=== PATIENT | male | born 1950 | race Two or more races ===

== ENCOUNTER 2018-11-24 17:48 | Inpatient (IN) | payer OTHER ==
[~2018-11-24] VITALS: Ht 162.6 cm; Wt 77.1 kg
[2018-11-24] MEDS ORDERED: CARV25TA2 PO (21:00)
[2018-11-24] MEDS ORDERED: DOCU-141 PO (21:00)
[2018-11-24] MEDS ORDERED: ERGO500040 PO (21:00)
[2018-11-24] MEDS ORDERED: SEVE800T28 PO (21:00)
[2018-11-24] MEDS ORDERED: FERR325T24 PO (21:00)
[2018-11-24] MEDS ORDERED: ATOR40TA PO (21:00)
[2018-11-24] MEDS ORDERED: ASCO500T9 PO (21:00)
[2018-11-24] MEDS ORDERED: MULT1TAB73 PO (21:00)
[2018-11-24] MEDS ORDERED: FOLI1TAB16 PO (21:00)
[2018-11-24] MEDS ORDERED: BENA20TA9 PO (21:00)
[2018-11-24] MEDS ORDERED: PANT40TA4 PO (21:00)
[2018-11-24] MEDS ORDERED: QUET25TA PO (21:00)
[2018-11-24 23:57] VITALS: BP 168/81
[2018-11-24 23:59] VITALS: BP 143/82
[2018-11-25] MEDS ORDERED: Z GUARD REMEDY 2 OZ OINT TP PRN (00:30)
[2018-11-25] MEDS ORDERED: HYDROCODONE/APAP 5/325MG 1 EACH TABLET PO PRN (00:30)
[2018-11-25] MEDS ORDERED: ONDANSETRON HCL/PF 4 MG/2 ML VIAL IVP PRN (00:30)
[2018-11-25] MEDS ORDERED: ZOLPIDEM TARTRATE 5 MG TABLET PO PRN (00:30)
[2018-11-25] MEDS ORDERED: ACETAMINOPHEN 325 MG TABLET PO PRN (00:30)
[2018-11-25] MEDS: SEVELAMER CARBONATE 800 MG TABLET PO SCH ×4 (01:21→18:25)
[2018-11-25] MEDS: QUETIAPINE FUMARATE 25 MG TABLET PO SCH ×2 (01:21→21:28)
[2018-11-25] MEDS ORDERED: PANTOPRAZOLE 40 MG VIAL ONE (01:35)
[2018-11-25] MEDS: PANTOPRAZOLE 40 MG VIAL IV SCH ×2 (01:38→09:00)
[2018-11-25 04:00] VITALS: BP 151/76
[2018-11-25 06:14] LABS: BASOPHILS % (AUTO) 0.4 % (0.0-2.0); EOSINOPHILS % (AUTO) 1.1 % (0.0-6.0); HEMATOCRIT 24 % (39-51); HEMOGLOBIN 8.1 g/dL (13.5-17.5); LYMPHOCYTES # (AUTO) 0.8 /CMM (0.8-4.8); LYMPHOCYTES % (AUTO) 8.6 % (20.0-44.0); MEAN CORPUSCULAR HGB CONC 34 g/dl (31.0-36.0); MEAN CORPUSCULAR VOLUME 90 fL (80-96); MONOCYTES # (AUTO) 1.1 /CMM (0.1-1.30); MONOCYTES % (AUTO) 11.6 % (2.0-12.0); NEUTROPHILS # (AUTO) 7.8 /CMM (1.8-8.9); NEUTROPHILS % (AUTO) 78.3 % (43.0-81.0); PLATELET COUNT (AUTO) 255 /CMM (150-450); RED BLOOD CELL COUNT(AUTO) 2.63 MIL/uL (4.5-6.0); WHITE BLOOD COUNT (AUTO) 9.9 K/uL (4.3-11.0)
[2018-11-25 06:31] LABS: CALCIUM, SERUM 8.5 mg/dL (8.5-10.1); PHOSPHORUS 7.4 mg/dL (2.5-4.9); POTASSIUM 5.4 mmol/L (3.5-5.1)
[2018-11-25 06:47] LABS: CREATININE 11.5 mg/dL (0.6-1.3)
[2018-11-25 08:00] VITALS: BP 161/84
[2018-11-25] MEDS ORDERED: ERGOCALCIFEROL (VITAMIN D 2) 50,000 UNIT CAPSULE PO SCH (09:00)
[2018-11-25] MEDS: FERROUS SULFATE (325 MG) 325 MG/TAB TABLET PO SCH ×3 (09:18→18:25)
[2018-11-25] MEDS: ASCORBIC ACID 500 MG TABLET PO SCH (09:18)
[2018-11-25] MEDS: DOCUSATE SODIUM 100 MG CAPSULE PO SCH ×2 (09:18→18:25)
[2018-11-25] MEDS: MULTIVITAMINS,THERAGRAN 1 UDTAB TABLET PO SCH (09:18)
[2018-11-25] MEDS: FOLIC ACID 1 MG TABLET PO SCH (09:19)
[2018-11-25] MEDS: BENAZEPRIL HCL 20 MG TABLET PO SCH (15:08)
[2018-11-25] MEDS: CARVEDILOL 12.5 MG TABLET PO SCH ×2 (15:09→23:40)
[2018-11-25 15:45] VITALS: BP 167/97
[2018-11-25 17:40] LABS: FERRITIN 4335 ng/mL (8-388)
[2018-11-25] MEDS: SUCRALFATE 1 G/10 ML UDC GT SCH ×2 (18:25→21:28)
[2018-11-25 18:57] LABS: IRON, SERUM 39 ug/dl (50-175); TOTAL IRON BINDING CAPACITY 82 ug/dl (250-450)
[2018-11-25 20:00] VITALS: BP_SYST 143; BP_SYST 163; BP_DIAS 81
[2018-11-25] MEDS ORDERED: NEXIUM 40 MG VIAL IV SCH (20:00)
[2018-11-25] MEDS: NEXIUM 40 MG VIAL IV SCH (20:39)
[2018-11-25] MEDS: ATORVASTATIN 40 MG TABLET PO SCH (21:28)
[2018-11-26 06:58] LABS: BASOPHILS % (AUTO) 0.4 % (0.0-2.0); EOSINOPHILS % (AUTO) 0.9 % (0.0-6.0); HEMATOCRIT 22 % (39-51); HEMOGLOBIN 7.4 g/dL (13.5-17.5); LYMPHOCYTES # (AUTO) 0.4 /CMM (0.8-4.8); MEAN CORPUSCULAR HGB CONC 34 g/dl (31.0-36.0); MEAN CORPUSCULAR VOLUME 89 fL (80-96); MONOCYTES # (AUTO) 0.8 /CMM (0.1-1.30); MONOCYTES % (AUTO) 12.4 % (2.0-12.0); NEUTROPHILS # (AUTO) 5.5 /CMM (1.8-8.9); NEUTROPHILS % (AUTO) 80.3 % (43.0-81.0); PLATELET COUNT (AUTO) 222 /CMM (150-450); RED BLOOD CELL COUNT(AUTO) 2.43 MIL/uL (4.5-6.0); WHITE BLOOD COUNT (AUTO) 6.8 K/uL (4.3-11.0)
[2018-11-26 07:16] LABS: CALCIUM, SERUM 8.2 mg/dL (8.5-10.1); MAGNESIUM 1.9 mg/dL (1.8-2.4); PHOSPHORUS 4.7 mg/dL (2.5-4.9); POTASSIUM 4.5 mmol/L (3.5-5.1)
[2018-11-26 07:18] LABS: CREATININE 7.8 mg/dL (0.6-1.3)
[2018-11-26 08:00] VITALS: BP 160/84
[2018-11-26] MEDS ORDERED: ERGOCALCIFEROL (VITAMIN D 2) 50,000 UNIT CAPSULE PO SCH (09:00)
[2018-11-26] MEDS: ASCORBIC ACID 500 MG TABLET PO SCH (09:36)
[2018-11-26] MEDS: FOLIC ACID 1 MG TABLET PO SCH (09:36)
[2018-11-26] MEDS: SUCRALFATE 1 G/10 ML UDC GT SCH ×4 (09:36→21:05)
[2018-11-26] MEDS: SEVELAMER CARBONATE 800 MG TABLET PO SCH ×3 (09:36→18:52)
[2018-11-26] MEDS: DOCUSATE SODIUM 100 MG CAPSULE PO SCH ×2 (09:36→18:52)
[2018-11-26] MEDS: FERROUS SULFATE (325 MG) 325 MG/TAB TABLET PO SCH ×3 (09:37→18:52)
[2018-11-26] MEDS: MULTIVITAMINS,THERAGRAN 1 UDTAB TABLET PO SCH (09:37)
[2018-11-26] MEDS: CARVEDILOL 12.5 MG TABLET PO SCH ×2 (09:37→20:15)
[2018-11-26] MEDS: BENAZEPRIL HCL 20 MG TABLET PO SCH (09:38)
[2018-11-26] MEDS: NEXIUM 40 MG VIAL IV SCH ×2 (09:47→20:14)
[2018-11-26] MEDS ORDERED: QUETIAPINE FUMARATE 25 MG TABLET PO SCH (13:30)
[2018-11-26 16:00] VITALS: BP 164/88
[2018-11-26] MEDS ORDERED: QUETIAPINE FUMARATE 25 MG TABLET PO PRN (19:30)
[2018-11-26 20:00] VITALS: BP 172/89
[2018-11-26 20:03] VITALS: BP 172/89
[2018-11-26] MEDS: QUETIAPINE FUMARATE 25 MG TABLET PO SCH (20:15)
[2018-11-26] MEDS: ATORVASTATIN 40 MG TABLET PO SCH (21:05)
[2018-11-27] VITALS (7 sets, daily range): BP systolic 91–169; BP diastolic 59–96
[2018-11-27 07:01] LABS: BASOPHILS % (AUTO) 0.8 % (0.0-2.0); EOSINOPHILS % (AUTO) 3.2 % (0.0-6.0); LYMPHOCYTES # (AUTO) 0.6 /CMM (0.8-4.8); MEAN CORPUSCULAR HGB CONC 34 g/dl (31.0-36.0); MEAN CORPUSCULAR VOLUME 90 fL (80-96); MONOCYTES # (AUTO) 0.6 /CMM (0.1-1.30); MONOCYTES % (AUTO) 14.6 % (2.0-12.0); NEUTROPHILS % (AUTO) 67.4 % (43.0-81.0); PLATELET COUNT (AUTO) 207 /CMM (150-450); RED BLOOD CELL COUNT(AUTO) 2.22 MIL/uL (4.5-6.0); WHITE BLOOD COUNT (AUTO) 4.4 K/uL (4.3-11.0)
[2018-11-27 07:12] LABS: CALCIUM, SERUM 8.2 mg/dL (8.5-10.1); PHOSPHORUS 5.6 mg/dL (2.5-4.9); POTASSIUM 5.2 mmol/L (3.5-5.1)
[2018-11-27 07:44] LABS: HEMOGLOBIN 6.8 g/dL (13.5-17.5)
[2018-11-27 07:45] LABS: HEMATOCRIT 20 % (39-51)
[2018-11-27 08:12] LABS: EOSINOPHILS % (MANUAL) 2 % (0-4); LYMPHOCYTES % (MANUAL) 17 % (16-48); MONOCYTES % (MANUAL) 16 % (0-11.0); NEUTROPHILS % (MANUAL) 65 (42-76)
[2018-11-27] MEDS: FERROUS SULFATE (325 MG) 325 MG/TAB TABLET PO SCH ×3 (09:30→17:49)
[2018-11-27] MEDS: NEXIUM 40 MG VIAL IV SCH ×2 (09:30→20:35)
[2018-11-27] MEDS: ASCORBIC ACID 500 MG TABLET PO SCH (09:30)
[2018-11-27] MEDS: SEVELAMER CARBONATE 800 MG TABLET PO SCH ×3 (09:30→17:50)
[2018-11-27] MEDS: MULTIVITAMINS,THERAGRAN 1 UDTAB TABLET PO SCH (09:30)
[2018-11-27] MEDS: FOLIC ACID 1 MG TABLET PO SCH (09:30)
[2018-11-27] MEDS: DOCUSATE SODIUM 100 MG CAPSULE PO SCH ×2 (09:31→17:49)
[2018-11-27] MEDS: BENAZEPRIL HCL 20 MG TABLET PO SCH (09:32)
[2018-11-27] MEDS: CARVEDILOL 12.5 MG TABLET PO SCH ×2 (09:33→20:35)
[2018-11-27] MEDS: QUETIAPINE FUMARATE 25 MG TABLET PO SCH ×4 (09:34→20:34)
[2018-11-27] MEDS: SUCRALFATE 1 G/10 ML UDC GT SCH ×4 (09:34→21:02)
[2018-11-27] MEDS: AZITHROMYCIN 500 MG in IV D5W 250 ML IV SCH (13:52)
[2018-11-27] MEDS: AZTREONAM 1 G in IV NS 0.9% 100 ML IV SCH (13:52)
[2018-11-27] MEDS ORDERED: PEG 3350/NA SULF,BICARB,CL/KCL 4,000 ML BOTTLE PO STA (16:20)
[2018-11-27] MEDS ORDERED: MAGNESIUM CITRATE 296 ML BOTTLE PO STA (16:20)
[2018-11-27] MEDS ORDERED: NA PHOS,M-B/NA PHOS,DI-BA 1 EA ENEMA RC PRN (16:30)
[2018-11-27 18:20] LABS: ALBUMIN 1.9 g/dL (3.4-5.0); BILIRUBIN,DIRECT 0.1 mg/dL (0.0-0.2); BILIRUBIN,TOTAL 0.4 mg/dL (0.2-1.0); TOTAL PROTEIN, SERUM 6.3 g/dL (6.4-8.2)
[2018-11-27 20:06] LABS: BASOPHILS % (AUTO) 0.9 % (0.0-2.0); EOSINOPHILS % (AUTO) 2.2 % (0.0-6.0); HEMATOCRIT 23 % (39-51); HEMOGLOBIN 7.8 g/dL (13.5-17.5); LYMPHOCYTES # (AUTO) 0.4 /CMM (0.8-4.8); LYMPHOCYTES % (AUTO) 9.6 % (20.0-44.0); MEAN CORPUSCULAR HGB CONC 34 g/dl (31.0-36.0); MEAN CORPUSCULAR VOLUME 91 fL (80-96); MONOCYTES # (AUTO) 0.5 /CMM (0.1-1.30); MONOCYTES % (AUTO) 12.2 % (2.0-12.0); NEUTROPHILS # (AUTO) 3.1 /CMM (1.8-8.9); NEUTROPHILS % (AUTO) 75.1 % (43.0-81.0); PLATELET COUNT (AUTO) 186 /CMM (150-450); RED BLOOD CELL COUNT(AUTO) 2.57 MIL/uL (4.5-6.0); WHITE BLOOD COUNT (AUTO) 4.1 K/uL (4.3-11.0)
[2018-11-27] MEDS: ATORVASTATIN 40 MG TABLET PO SCH (21:02)
[2018-11-28] MEDS: SUCRALFATE 1 G/10 ML UDC GT SCH ×4 (07:30→21:26)
[2018-11-28 08:00] VITALS: BP 99/74
[2018-11-28] MEDS: QUETIAPINE FUMARATE 25 MG TABLET PO SCH ×4 (08:00→21:25)
[2018-11-28] MEDS: NEXIUM 40 MG VIAL IV SCH ×2 (08:05→21:25)
[2018-11-28] MEDS: MULTIVITAMINS,THERAGRAN 1 UDTAB TABLET PO SCH (09:00)
[2018-11-28] MEDS: FERROUS SULFATE (325 MG) 325 MG/TAB TABLET PO SCH ×3 (09:00→16:25)
[2018-11-28] MEDS: SEVELAMER CARBONATE 800 MG TABLET PO SCH ×3 (09:00→16:26)
[2018-11-28] MEDS: BENAZEPRIL HCL 20 MG TABLET PO SCH (09:00)
[2018-11-28] MEDS: CARVEDILOL 12.5 MG TABLET PO SCH ×2 (09:00→21:26)
[2018-11-28] MEDS: ASCORBIC ACID 500 MG TABLET PO SCH (09:00)
[2018-11-28] MEDS: FOLIC ACID 1 MG TABLET PO SCH (09:00)
[2018-11-28] MEDS: DOCUSATE SODIUM 100 MG CAPSULE PO SCH ×2 (09:00→16:25)
[2018-11-28 12:06] LABS: BASOPHILS % (AUTO) 0.7 % (0.0-2.0); HEMATOCRIT 22 % (39-51); HEMOGLOBIN 7.4 g/dL (13.5-17.5); LYMPHOCYTES # (AUTO) 0.6 /CMM (0.8-4.8); LYMPHOCYTES % (AUTO) 14.2 % (20.0-44.0); MEAN CORPUSCULAR HGB CONC 34 g/dl (31.0-36.0); MEAN CORPUSCULAR VOLUME 90 fL (80-96); MONOCYTES # (AUTO) 0.5 /CMM (0.1-1.30); MONOCYTES % (AUTO) 12.2 % (2.0-12.0); NEUTROPHILS # (AUTO) 2.8 /CMM (1.8-8.9); NEUTROPHILS % (AUTO) 69.9 % (43.0-81.0); PLATELET COUNT (AUTO) 183 /CMM (150-450); RED BLOOD CELL COUNT(AUTO) 2.44 MIL/uL (4.5-6.0)
[2018-11-28] MEDS: AZTREONAM 1 G in IV NS 0.9% 100 ML IV SCH (12:12)
[2018-11-28 12:18] LABS: CALCIUM, SERUM 8.1 mg/dL (8.5-10.1); CREATININE 7.2 mg/dL (0.6-1.3); POTASSIUM 4.9 mmol/L (3.5-5.1)
[2018-11-28 12:19] LABS: MAGNESIUM 1.9 mg/dL (1.8-2.4); PHOSPHORUS 4.6 mg/dL (2.5-4.9)
[2018-11-28] MEDS: AZITHROMYCIN 500 MG in IV D5W 250 ML IV SCH (14:05)
[2018-11-28 16:00] VITALS: BP 130/70
[2018-11-28] MEDS: PEG 3350/NA SULF,BICARB,CL/KCL 4,000 ML BOTTLE PO ONE ×2 (16:00→16:57)
[2018-11-28 20:00] VITALS: BP 177/77
[2018-11-28] MEDS: ATORVASTATIN 40 MG TABLET PO SCH (21:26)
[2018-11-29 07:34] LABS: BASOPHILS % (AUTO) 0.8 % (0.0-2.0); EOSINOPHILS % (AUTO) 2.7 % (0.0-6.0); HEMATOCRIT 25 % (39-51); HEMOGLOBIN 8.5 g/dL (13.5-17.5); LYMPHOCYTES # (AUTO) 0.7 /CMM (0.8-4.8); MEAN CORPUSCULAR HGB CONC 34 g/dl (31.0-36.0); MEAN CORPUSCULAR VOLUME 89 fL (80-96); MONOCYTES # (AUTO) 0.5 /CMM (0.1-1.30); MONOCYTES % (AUTO) 12.5 % (2.0-12.0); NEUTROPHILS # (AUTO) 2.9 /CMM (1.8-8.9); PLATELET COUNT (AUTO) 196 /CMM (150-450); RED BLOOD CELL COUNT(AUTO) 2.82 MIL/uL (4.5-6.0); WHITE BLOOD COUNT (AUTO) 4.3 K/uL (4.3-11.0)
[2018-11-29 07:55] LABS: CALCIUM, SERUM 8.5 mg/dL (8.5-10.1); CREATININE 5.3 mg/dL (0.6-1.3); MAGNESIUM 2.1 mg/dL (1.8-2.4); PHOSPHORUS 3.7 mg/dL (2.5-4.9); POTASSIUM 3.9 mmol/L (3.5-5.1)
[2018-11-29 08:00] VITALS: BP 208/89
[2018-11-29] MEDS: NEXIUM 40 MG VIAL IV SCH (08:52)
[2018-11-29] MEDS: BENAZEPRIL HCL 20 MG TABLET PO SCH (08:53)
[2018-11-29] MEDS: FOLIC ACID 1 MG TABLET PO SCH (08:53)
[2018-11-29] MEDS: SEVELAMER CARBONATE 800 MG TABLET PO SCH ×3 (08:53→17:12)
[2018-11-29] MEDS: FERROUS SULFATE (325 MG) 325 MG/TAB TABLET PO SCH ×3 (08:54→17:12)
[2018-11-29] MEDS: SUCRALFATE 1 G/10 ML UDC GT SCH ×3 (08:54→17:12)
[2018-11-29] MEDS: CARVEDILOL 12.5 MG TABLET PO SCH ×2 (08:54→20:36)
[2018-11-29] MEDS: DOCUSATE SODIUM 100 MG CAPSULE PO SCH ×2 (08:54→17:12)
[2018-11-29] MEDS: MULTIVITAMINS,THERAGRAN 1 UDTAB TABLET PO SCH (08:54)
[2018-11-29] MEDS: QUETIAPINE FUMARATE 25 MG TABLET PO SCH ×4 (08:54→20:35)
[2018-11-29] MEDS: ASCORBIC ACID 500 MG TABLET PO SCH (08:54)
[2018-11-29] MEDS: AZTREONAM 1 G in IV NS 0.9% 100 ML IV SCH (13:20)
[2018-11-29] MEDS: AZITHROMYCIN 500 MG in IV D5W 250 ML IV SCH (15:11)
[2018-11-29 16:02] VITALS: BP 189/77
[2018-11-29] MEDS: PANTOPRAZOLE 40 MG/PACK PACK PO SCH (17:12)
[2018-11-29 20:00] VITALS: BP 164/92
[2018-11-29] MEDS: ATORVASTATIN 40 MG TABLET PO SCH (21:25)
[2018-11-29] MEDS: SUCRALFATE 1 G/10 ML UDC PO SCH (21:25)
[2018-11-29 22:00] VITALS: BP 160/82
[2018-11-30] VITALS: BP 157/84
[2018-11-30] MEDS: PANTOPRAZOLE 40 MG/PACK PACK PO SCH ×2 (07:58→16:36)
[2018-11-30] MEDS: QUETIAPINE FUMARATE 25 MG TABLET PO SCH ×4 (07:58→20:38)
[2018-11-30] MEDS: SUCRALFATE 1 G/10 ML UDC PO SCH ×4 (07:58→21:12)
[2018-11-30 08:00] VITALS: BP 158/81
[2018-11-30] MEDS: BENAZEPRIL HCL 20 MG TABLET PO SCH (08:07)
[2018-11-30] MEDS: DOCUSATE SODIUM 100 MG CAPSULE PO SCH ×2 (08:07→16:36)
[2018-11-30] MEDS: FERROUS SULFATE (325 MG) 325 MG/TAB TABLET PO SCH ×3 (08:07→16:36)
[2018-11-30] MEDS: CARVEDILOL 12.5 MG TABLET PO SCH ×2 (08:08→20:39)
[2018-11-30] MEDS: ASCORBIC ACID 500 MG TABLET PO SCH (08:08)
[2018-11-30] MEDS: SEVELAMER CARBONATE 800 MG TABLET PO SCH ×3 (08:08→16:36)
[2018-11-30] MEDS: MULTIVITAMINS,THERAGRAN 1 UDTAB TABLET PO SCH (08:08)
[2018-11-30] MEDS: FOLIC ACID 1 MG TABLET PO SCH (08:08)
[2018-11-30 10:58] LABS: BASOPHILS # (AUTO) 0.1 /CMM (0.0-0.2); BASOPHILS % (AUTO) 2.5 % (0.0-2.0); HEMATOCRIT 25 % (39-51); HEMOGLOBIN 8.5 g/dL (13.5-17.5); LYMPHOCYTES # (AUTO) 0.7 /CMM (0.8-4.8); LYMPHOCYTES % (AUTO) 15.4 % (20.0-44.0); MEAN CORPUSCULAR HGB CONC 34 g/dl (31.0-36.0); MEAN CORPUSCULAR VOLUME 90 fL (80-96); MONOCYTES # (AUTO) 0.4 /CMM (0.1-1.30); MONOCYTES % (AUTO) 9.1 % (2.0-12.0); NEUTROPHILS # (AUTO) 3.1 /CMM (1.8-8.9); PLATELET COUNT (AUTO) 203 /CMM (150-450); RED BLOOD CELL COUNT(AUTO) 2.79 MIL/uL (4.5-6.0); WHITE BLOOD COUNT (AUTO) 4.4 K/uL (4.3-11.0)
[2018-11-30 11:08] LABS: CALCIUM, SERUM 8.4 mg/dL (8.5-10.1); CREATININE 3.6 mg/dL (0.6-1.3); MAGNESIUM 1.9 mg/dL (1.8-2.4); PHOSPHORUS 2.4 mg/dL (2.5-4.9); POTASSIUM 4.1 mmol/L (3.5-5.1)
[2018-11-30] MEDS: AZTREONAM 1 G in IV NS 0.9% 100 ML IV SCH ×3 (12:49→15:47)
[2018-11-30] MEDS: FLUCONAZOLE (100 MG) 100 MG TABLET PO SCH (12:51)
[2018-11-30] MEDS: AZITHROMYCIN 250 MG TABLET PO SCH (13:00)
[2018-11-30] MEDS: hydrALAZINE HCL IV 20 MG VIAL IV PRN ×2 (15:22→15:38)
[2018-11-30 16:00] VITALS: BP 174/82
[2018-11-30] MEDS ORDERED: K PHOS NEUTRAL 250 MG TABLET PO ONE (17:00)
[2018-11-30 20:00] VITALS: BP 157/90
[2018-11-30] MEDS: ATORVASTATIN 40 MG TABLET PO SCH (21:12)
[2018-12-01 06:29] LABS: BASOPHILS % (AUTO) 0.7 % (0.0-2.0); EOSINOPHILS % (AUTO) 1.8 % (0.0-6.0); HEMATOCRIT 24 % (39-51); HEMOGLOBIN 8.2 g/dL (13.5-17.5); LYMPHOCYTES # (AUTO) 0.8 /CMM (0.8-4.8); LYMPHOCYTES % (AUTO) 14.8 % (20.0-44.0); MEAN CORPUSCULAR HGB CONC 34 g/dl (31.0-36.0); MEAN CORPUSCULAR VOLUME 90 fL (80-96); MONOCYTES # (AUTO) 0.5 /CMM (0.1-1.30); MONOCYTES % (AUTO) 10.1 % (2.0-12.0); NEUTROPHILS # (AUTO) 3.8 /CMM (1.8-8.9); NEUTROPHILS % (AUTO) 72.6 % (43.0-81.0); PLATELET COUNT (AUTO) 174 /CMM (150-450); RED BLOOD CELL COUNT(AUTO) 2.72 MIL/uL (4.5-6.0); WHITE BLOOD COUNT (AUTO) 5.2 K/uL (4.3-11.0)
[2018-12-01 06:33] LABS: CALCIUM, SERUM 8.3 mg/dL (8.5-10.1); PHOSPHORUS 4.2 mg/dL (2.5-4.9); POTASSIUM 4.4 mmol/L (3.5-5.1)
[2018-12-01 08:00] VITALS: BP 197/87
[2018-12-01] MEDS ORDERED: FLUCONAZOLE (100 MG) 100 MG TABLET PO SCH (09:00)
[2018-12-01] MEDS: SUCRALFATE 1 G/10 ML UDC PO SCH ×2 (09:04→12:34)
[2018-12-01] MEDS: BENAZEPRIL HCL 20 MG TABLET PO SCH (09:05)
[2018-12-01] MEDS: PANTOPRAZOLE 40 MG/PACK PACK PO SCH ×2 (09:05→15:55)
[2018-12-01] MEDS: CARVEDILOL 12.5 MG TABLET PO SCH (09:06)
[2018-12-01] MEDS: ASCORBIC ACID 500 MG TABLET PO SCH (09:06)
[2018-12-01] MEDS: FERROUS SULFATE (325 MG) 325 MG/TAB TABLET PO SCH ×3 (09:06→16:16)
[2018-12-01] MEDS: MULTIVITAMINS,THERAGRAN 1 UDTAB TABLET PO SCH (09:06)
[2018-12-01] MEDS: DOCUSATE SODIUM 100 MG CAPSULE PO SCH ×2 (09:07→16:16)
[2018-12-01] MEDS: FOLIC ACID 1 MG TABLET PO SCH (09:08)
[2018-12-01] MEDS: SEVELAMER CARBONATE 800 MG TABLET PO SCH ×3 (09:08→16:16)
[2018-12-01] MEDS: QUETIAPINE FUMARATE 25 MG TABLET PO SCH ×3 (09:09→16:16)
[2018-12-01] MEDS ORDERED: SUCR1ORA6 PO (12:06)
[2018-12-01] MEDS ORDERED: QUET25TA PO ×3 (12:06)
[2018-12-01] MEDS ORDERED: FLUC100T8 PO (12:06)
[2018-12-01] MEDS ORDERED: PANT40SU2 PO (12:06)
[2018-12-01] MEDS: FLUCONAZOLE (100 MG) 100 MG TABLET PO SCH (12:30)
[2018-12-01] MEDS: AZTREONAM 1 G in IV NS 0.9% 100 ML IV SCH (12:30)
[2018-12-01] MEDS: AZITHROMYCIN 250 MG TABLET PO SCH (12:36)
[2018-12-01 16:00] VITALS: BP 193/84
[2018-12-01] MEDS ORDERED: hydrALAZINE HCL 10 MG TABLET PO PRN (16:00)
[2018-12-01 16:14] VITALS: BP 193/87
== END 2018-12-01 17:22 | DRG 241 ==
LOC: TELE 19:39 → MED 11-25 15:24
PROVIDERS: ADMIT Nurse Practitioner Acute Care; ATTEND Registered Nurse
PROC: 5A1D70Z Performance of Urinary Filtration, Intermittent, Less than 6 Hours Per Day (ICD-10-PCS; principal; 2018-11-25)
PROC: 30233N1 Transfusion of Nonautologous Red Blood Cells into Peripheral Vein, Percutaneous Approach (ICD-10-PCS; 2018-11-27)
PROC: 0DB78ZX Excision of Stomach, Pylorus, Via Natural or Artificial Opening Endoscopic, Diagnostic (ICD-10-PCS; 2018-11-28)
DX: K29.81 Duodenitis with bleeding (principal); G93.41 Metabolic encephalopathy; J15.9 Unspecified bacterial pneumonia; D68.59 Other primary thrombophilia; B37.81 Candidal esophagitis; R53.2 Functional quadriplegia; E11.22 Type 2 diabetes mellitus with diabetic chronic kidney disease; D62 Acute posthemorrhagic anemia; I12.0 Hypertensive chronic kidney disease with stage 5 chronic kidney disease or end stage renal disease; F05 Delirium due to known physiological condition; E87.5 Hyperkalemia; N18.6 End stage renal disease; D63.8 Anemia in other chronic diseases classified elsewhere; Z99.2 Dependence on renal dialysis; E78.5 Hyperlipidemia, unspecified; I16.0 Hypertensive urgency; F41.9 Anxiety disorder, unspecified; F03.90 Unspecified dementia, unspecified severity, without behavioral disturbance, psychotic disturbance, mood disturbance, and anxiety; F01.50 Vascular dementia, unspecified severity, without behavioral disturbance, psychotic disturbance, mood disturbance, and anxiety; F29 Unspecified psychosis not due to a substance or known physiological condition; K44.9 Diaphragmatic hernia without obstruction or gangrene; E11.51 Type 2 diabetes mellitus with diabetic peripheral angiopathy without gangrene
CPT/HCPCS: 36415; 71045-TC; 80048-TC; 80061-TC; 80076-TC; 82140-TC; 82247-TC; 82248-TC; 82728-TC; 83540-TC; 83735-TC; 84100-TC; 85025-TC; 86704; 86706; 86850-TC; 86921-TC; 87081-TC; 87340; 88305-TC; 88313-TC; 88342; 90935-TC; 97530-TC; A6403; C9113; G0378; J0360; J0456; J2704; J3490; J7030; J7040; J7050; J7060; P9016-BL

== ENCOUNTER 2019-01-07 21:08 | Inpatient (IN) | payer OTHER ==
[~2019-01-07] VITALS: Ht 172.7 cm; Wt 73.5 kg
[~2019-01-07 21:08] MED LIST: ASCO500T9 PO; ATOR40TA PO; BENA20TA9 PO; CARV25TA2 PO; DOCU-141 PO; ERGO500040 PO; FERR325T24 PO; FLUC100T8 PO; FOLI1TAB16 PO; MULT1TAB73 PO; PANT40SU2 PO; QUET25TA PO; SEVE800T28 PO; SUCR1ORA6 PO
--- NOTE | 2019-01-07 23:06 | NUR ---
BUILDING SERVICES COORDINATOR ADMITTING NOTE PATIENT DIRECT ADMIT FROM [facility]. RECEIVED PATIENT VIA GURNEY. PATIENT ARABIC SPEAKING, AWAKE, CONFUSED AND SLOW TO RESPONSE. ON ROOM AIR, NO SOB AND RESPIRATORY DISTRESS NOTED. SKIN ASSESSMENT DONE, VITAL SIGNS DONE AND RECORDED. ON TELE MONITOR SINUS RHYTHM WITH HR 75. IV SITE RIGHT AC 18G, FLUSHING AND PATENT, SITE C/D/I, SALINE LOCKED. LEFT ARM AVF NOTED, POSITIVE FOR BRUIT AND THRILL, SITE C/D/I. SAFETY MEASURES IN PLACE; BED LOCKED AND IN LOWEST POSITION, SIDE RAILS UP X2, CALL LIGHT WITHIN REACH. MD AWARE OF PATIENT'S ARRIVAL ON UNIT. AWAITING FOR ADMITTING ORDERS. WILL CONTINUE MONITOR PT CLOSELY.
--- NOTE | 2019-01-07 23:15 | NUR ---
REFINERY TECHNICIAN NOTES MADE AWARE OF PATIENT BP 174/89, ORDERED HYDRALAZINE 10MG IV Q6H PRN FOR HYPERTENSION. WILL ATTEND TO ORDERS.
[2019-01-07 23:41] VITALS: BP 174/89
[2019-01-07] MEDS: hydrALAZINE HCL IV 20 MG VIAL IV PRN (23:41)
[2019-01-08] VITALS (8 sets, daily range): BP systolic 113–211; BP diastolic 76–106
[2019-01-08] MEDS ORDERED: ONDANSETRON HCL/PF 4 MG/2 ML VIAL IVP PRN
[2019-01-08] MEDS ORDERED: MAG HYDROX/AL HYDROX/SIMETH 30 ML UDC PO PRN
[2019-01-08] MEDS ORDERED: ZOLPIDEM TARTRATE 5 MG TABLET PO PRN
[2019-01-08] MEDS ORDERED: ACETAMINOPHEN 325 MG TABLET PO PRN
[2019-01-08] MEDS ORDERED: Z GUARD REMEDY 2 OZ OINT TP PRN
[2019-01-08] MEDS ORDERED: HYDROCODONE/APAP 5/325MG 1 EACH TABLET PO PRN
[2019-01-08] MEDS ORDERED: MAGNESIUM HYDROXIDE 30 ML UDC PO PRN
[2019-01-08 06:38] LABS: BASOPHILS # (AUTO) 0.1 /CMM (0.0-0.2); BASOPHILS % (AUTO) 1.2 % (0.0-2.0); EOSINOPHILS % (AUTO) 1.3 % (0.0-6.0); HEMATOCRIT 28 % (39-51); HEMOGLOBIN 9.5 g/dL (13.5-17.5); LYMPHOCYTES % (AUTO) 19.5 % (20.0-44.0); MEAN CORPUSCULAR HGB CONC 34 g/dl (31.0-36.0); MEAN CORPUSCULAR VOLUME 92 fL (80-96); MONOCYTES # (AUTO) 0.5 /CMM (0.1-1.30); MONOCYTES % (AUTO) 9.2 % (2.0-12.0); NEUTROPHILS # (AUTO) 3.6 /CMM (1.8-8.9); NEUTROPHILS % (AUTO) 68.8 % (43.0-81.0); PLATELET COUNT (AUTO) 138 /CMM (150-450); RED BLOOD CELL COUNT(AUTO) 3.09 MIL/uL (4.5-6.0); WHITE BLOOD COUNT (AUTO) 5.2 K/uL (4.3-11.0)
--- NOTE | 2019-01-08 06:55 | NUR ---
SIDE STITCHING MACHINE OPERATOR CLOSING NOTES PATIENT RESTING IN BED, [place]OH[place] SPEAKING, AWAKE, CONFUSED AND SLOW TO RESPOND. ON ROOM AIR, NO SOB AND RESPIRATORY DISTRESS NOTED. ON TELE MONITOR SINUS RHYTHM WITH HR 70S. IV SITE RIGHT AC 18G, FLUSHING AND PATENT, SITE C/D/I, SALINE LOCKED. LEFT ARM AVF NOTED, POSITIVE FOR BRUIT AND THRILL, SITE C/D/I. SAFETY MEASURES MAINTAINED; BED LOCKED AND IN LOWEST POSITION, SIDE RAILS UP X2, CALL LIGHT WITHIN REACH. REPOSITIONED Q2H. ALL ADMITTING ORDERS ATTENDED. ALL MD ORDERS CARRIED OUT. WILL ENDORSE TO AM RN FOR TAINA.
[2019-01-08 07:09] LABS: CALCIUM, SERUM 10.1 mg/dL (8.5-10.1); MAGNESIUM 2.3 mg/dL (1.8-2.4); PHOSPHORUS 5.3 mg/dL (2.5-4.9); POTASSIUM 5.1 mmol/L (3.5-5.1)
[2019-01-08 07:18] LABS: CREATININE 14.2 mg/dL (0.6-1.3)
[2019-01-08] MEDS ORDERED: [UNRECOGNIZED DRUG - OTHER] (08:12)
[2019-01-08] MEDS ORDERED: FOLI0.8T2 PO (08:12)
[2019-01-08] MEDS ORDERED: CLON0.1T PO (08:12)
[2019-01-08] MEDS: hydrALAZINE HCL IV 20 MG VIAL IV PRN ×2 (08:14→18:35)
[2019-01-08] MEDS: PANTOPRAZOLE 40 MG TABLET.DR PO SCH (08:14)
[2019-01-08] MEDS ORDERED: REG INSULIN IJ (08:15)
[2019-01-08] MEDS ORDERED: DEXTROSE 50%-WATER 50 ML DISP.SYRIN IV PRN (08:30)
[2019-01-08] MEDS ORDERED: QUETIAPINE FUMARATE 25 MG TABLET PO PRN (08:30)
[2019-01-08] MEDS ORDERED: BENAZEPRIL HCL 20 MG TABLET PO SCH (09:00)
[2019-01-08] MEDS: FERROUS SULFATE (325 MG) 325 MG/TAB TABLET PO SCH ×4 (09:43→17:00)
[2019-01-08] MEDS: ASPIRIN 325 MG TABLET PO SCH (09:43)
[2019-01-08] MEDS: DOCUSATE SODIUM 100 MG CAPSULE PO SCH ×2 (09:43→17:00)
[2019-01-08] MEDS: SEVELAMER CARBONATE 800 MG TABLET PO SCH ×4 (09:43→17:00)
[2019-01-08] MEDS: ASCORBIC ACID 500 MG TABLET PO SCH (09:43)
[2019-01-08] MEDS: FOLIC ACID 1 MG TABLET PO SCH (09:44)
[2019-01-08 09:47] LABS: THYROID STIMULATING HORMONE 3.142 uIU/mL (0.358-3.74)
[2019-01-08] MEDS ORDERED: CARVEDILOL 12.5 MG TABLET PO ONE (10:00)
[2019-01-08] MEDS ORDERED: NITROGLYCERIN PACKET 1 GM PACKET TOP SCH (12:00)
[2019-01-08] MEDS: CLONIDINE HCL 0.1 MG TABLET PO SCH ×2 (12:00→12:17)
[2019-01-08] MEDS: BLOOD SUGAR DIAGNOSTIC 1 EACH STRIP VI SCH ×3 (12:18→22:58)
[2019-01-08] MEDS: NITROGLYCERIN 30 GM TUBE TP SCH ×2 (12:18→18:33)
[2019-01-08] MEDS: INSULIN REGULAR, HUMAN 100 UNIT/ML 3 ML VIAL SQ PRN (12:32)
--- NOTE | 2019-01-08 12:56 | NUR ---
STUDENT DEVELOPMENT SPECIALIST AT BEDSIDE
--- NOTE | 2019-01-08 15:04 | NUR ---
PATIENT NOTED TO HAVE X3 EPISODES OF SINUS BRADYCARDIA DURING DIALYSIS- LOWEST HR 39, PVCS AND PACS. DR. GATES F AWARE, OKAY TO CONTINUE DIALYZING. BP 113/60
--- NOTE | 2019-01-08 16:04 | NUR ---
DIALYSIS COMPLETE. BP 132/76, HR 63. 2L OUT
[2019-01-08] MEDS ORDERED: PANTOPRAZOLE 40 MG/PACK PACK PO SCH (16:30)
[2019-01-08] MEDS: BENAZEPRIL HCL 20 MG TABLET PO SCH (17:00)
--- NOTE | 2019-01-08 19:00 | NUR ---
PATIENT LETHARGIC, AROUSABLE TO NAME AND TOUCH. NO ACUTE DISTRESS OR SOB. BED ALARM ON. BP 140/76
--- NOTE | 2019-01-08 19:20 | NUR ---
HAT STOCK LAMINATING MACHINE OPERATOR OPENING NOTES PATIENT RESTING IN BED, KOREAN SPEAKING, AWAKE, CONFUSED AND SLOW TO RESPOND. ON ROOM AIR, NO SOB AND RESPIRATORY DISTRESS NOTED. ON TELE MONITOR SINUS RHYTHM WITH HR 80'S. IV SITE RIGHT AC 18G, FLUSHING AND PATENT, SITE C/D/I, SALINE LOCKED. LEFT ARM AVF NOTED, POSITIVE FOR BRUIT AND THRILL, SITE C/D/I. SAFETY MEASURES MAINTAINED; BED LOCKED AND IN LOWEST POSITION, SIDE RAILS UP X2, CALL LIGHT WITHIN REACH. WILL REPOSITION Q2H. WILL CONT TO MONITOR PT.
[2019-01-08] MEDS ORDERED: CARVEDILOL 12.5 MG TABLET PO SCH (21:00)
--- NOTE | 2019-01-08 21:40 | NUR ---
BIOMETRICS SPECIALIST NOTES PAGED MD FOR ORDERS. PATIENT BP 175/83. MD ORDERED CLONIDINE PATCH 0.1MG Q24H. WILL ATTEND TO ORDERS.
[2019-01-08] MEDS: ATORVASTATIN 40 MG TABLET PO SCH (21:46)
[2019-01-08] MEDS ORDERED: CLONIDINE HCL 0.1MG/24H PTWK 1 EA PATCH TD SCH (22:00)
--- NOTE | 2019-01-08 22:20 | NUR ---
DESIZING MACHINE OPERATOR HEAD END NOTES GAVE REPORT TO ARIANNE PORTILLO FOR TAINA.
--- NOTE | 2019-01-08 22:25 | NUR ---
MS SQL SERVER DEVELOPER NOTES RECEIVED PTS AND REPORT FROM ARIANNE MONTGOMERY , PTS IS AWAKE AND RESPONSIVE NO SOB NO DISTRESS NOTED ON SR -89 ON THE MONITOR , DUE MEDS GIVEN ORDERED BP OF 175/83 CLONIDINE 0.1 TTS PATCH APPLIED ORDERED, ALL DUE MEDS GIVEN ORDERED, BLOOD SUGAR FOR 10PM IS 113MG/DL NO COVERAGE GIVEN PER SLIDING SCALE ,ALL NEEDS ATTENDED TOO CALL LIGHT WITHIN REACH KEPT PTS CLEAN DRY AND COMFORTABLE WILL CONTINUE TO MONITOR PTS.
[2019-01-08] MEDS: *INSULIN REGULAR(HUMULIN R)HUM 100 UNIT/ML VIAL SQ PRN (22:57)
[2019-01-09] VITALS (7 sets, daily range): BP systolic 149–180; BP diastolic 68–87
--- NOTE | 2019-01-09 | NUR ---
STILL OPERATOR BATCH OR CONTINUOUS NOTES BLOOD PRESSURE AT 12MN IS 178/73 , HYDRALAZINE PRN 10 MG GIVEN IV GIVEN ORDERED.ALL NEEEDS ATTENDEDTO WILL CONTINUE TO MONITOR.
[2019-01-09] MEDS: NITROGLYCERIN 30 GM TUBE TP SCH ×4 (01:21→17:03)
[2019-01-09] MEDS: hydrALAZINE HCL IV 20 MG VIAL IV PRN ×3 (01:25→21:47)
--- NOTE | 2019-01-09 06:20 | NUR ---
RN CLOSING NOTES PTS IN BED COMFORTABLE , AM CARE RENDERED N NO SOB NO DISTRESS NOTED , DUE MEDS AT 6AM GIVEN ORDERED , ALL NEEDS ATTENDED TOO CALL LIGHT WITHIN REACH , WILL ENDORSE TO RN DAY SHIFT FOR CONTINUITY OF CARE.
[2019-01-09] MEDS: PANTOPRAZOLE 40 MG TABLET.DR PO SCH (07:30)
[2019-01-09] MEDS: SEVELAMER CARBONATE 800 MG TABLET PO SCH ×4 (08:10→17:01)
[2019-01-09] MEDS: DOCUSATE SODIUM 100 MG CAPSULE PO SCH ×2 (08:10→17:01)
[2019-01-09] MEDS: FERROUS SULFATE (325 MG) 325 MG/TAB TABLET PO SCH ×4 (08:10→17:01)
[2019-01-09] MEDS: BENAZEPRIL HCL 20 MG TABLET PO SCH ×2 (08:10→17:03)
[2019-01-09] MEDS: VIT B CMPLX 3/FA/VIT C/BIOTIN 1 TAB TABLET PO SCH (08:10)
[2019-01-09] MEDS: ASCORBIC ACID 500 MG TABLET PO SCH (08:10)
[2019-01-09] MEDS: FOLIC ACID 1 MG TABLET PO SCH (08:10)
[2019-01-09] MEDS: ASPIRIN 325 MG TABLET PO SCH (08:10)
--- NOTE | 2019-01-09 08:16 | NUR ---
PATIENT SEEN BY DR. ROLDAN. PATIENT UNAROUSABLE TO NAME AND TOUCH, DOES NOT FOLLOW COMMAND. DR. ROLDAN AWARE OF ORAL INTAKE POTENTIAL, NO MEDICATIONS GIVEN PO DUE TO CONDITION. PATIENT DOES NOT OPEN MOUTH.
--- NOTE | 2019-01-09 08:40 | NUR ---
WOUND CARE CONSULT: PT PRESENTS WITH MULTIPLE AREAS OF SCARRING ON SKIN INCLUDING FRAGILE SCARS TO BILATERAL HIPS, PRESENT ON ADMISSION. RECOMMENDATIONS MADE FOR SKIN PROTECTION. DISCUSSED WITH NURSING STAFF. ISOFLEX LOW AIRLOSS BED TO BE PLACED. WILL SEE PRN. YEH IN AGREEMENT WITH PLAN OF CARE. PT IS VERY DROWSY. CURRENT CHARLEE SCORE IS 12. Addendum: 01/09/19 at 0843 by TEENA YING WNDNU Amended: Links added.
--- NOTE | 2019-01-09 08:50 | NUR ---
STAT ABG ORDER RECEIVED
[2019-01-09 09:14] LABS: BASOPHILS # (AUTO) 0.1 /CMM (0.0-0.2); EOSINOPHILS % (AUTO) 1.9 % (0.0-6.0); HEMATOCRIT 25 % (39-51); HEMOGLOBIN 8.4 g/dL (13.5-17.5); LYMPHOCYTES # (AUTO) 1.3 /CMM (0.8-4.8); LYMPHOCYTES % (AUTO) 24.5 % (20.0-44.0); MEAN CORPUSCULAR HGB CONC 33 g/dl (31.0-36.0); MEAN CORPUSCULAR VOLUME 92 fL (80-96); MONOCYTES # (AUTO) 0.7 /CMM (0.1-1.30); MONOCYTES % (AUTO) 12.3 % (2.0-12.0); NEUTROPHILS # (AUTO) 3.3 /CMM (1.8-8.9); NEUTROPHILS % (AUTO) 60.3 % (43.0-81.0); PLATELET COUNT (AUTO) 140 /CMM (150-450); RED BLOOD CELL COUNT(AUTO) 2.74 MIL/uL (4.5-6.0); WHITE BLOOD COUNT (AUTO) 5.5 K/uL (4.3-11.0)
[2019-01-09 09:29] LABS: ALBUMIN 2.9 g/dL (3.4-5.0); BILIRUBIN,TOTAL 0.5 mg/dL (0.2-1.0); CALCIUM, SERUM 9.5 mg/dL (8.5-10.1); PHOSPHORUS 4.7 mg/dL (2.5-4.9); POTASSIUM 4.6 mmol/L (3.5-5.1); TOTAL PROTEIN, SERUM 6.9 g/dL (6.4-8.2)
[2019-01-09 09:30] LABS: CREATININE 10.6 mg/dL (0.6-1.3)
[2019-01-09 09:38] LABS: ABG BASE EXCESS 3.5 mmol/L; ABG PCO2 36.1 mmHg (35.0-45.0); ABG PH 7.491 (7.350-7.450); AaDO2 4.5 mmHg; COHb 0.7 % (0.5-1.5); MetHb 0.7 % (0.0-1.5); O2Hb 95.6 % (94.0-97.0); SITE, ABG Right Radial; VENT MODE, BG ROOM AIR
[2019-01-09] MEDS: BLOOD SUGAR DIAGNOSTIC 1 EACH STRIP VI SCH ×4 (09:47→22:29)
--- NOTE | 2019-01-09 13:00 | NUR ---
REFUSED PO MEDS. WOULD NOT OPEN MOUTH
--- NOTE | 2019-01-09 16:09 | NUR ---
PATIENT AWAKE, EYES OPEN, AROUSABLE AT THIS TIME.
--- NOTE | 2019-01-09 19:30 | NUR ---
RN NOTES , PTS IS AWAKE AND RESPONSIVE NO SOB NO DISTRESS. PT IS ALERT AND O TIMES 1. OPENS EYES. NON RESPONSIVE, BUT WILL TALK FROM TIME TO TIME. CONFUSED. DUE MEDS GIVEN ORDERED BP OF 175/83 CLONIDINE 0.1 TTS PATCH ON AND IN TACT., CALL LIGHT WITHIN REACH KEPT PTS WILL BE KEPT CLEAN DRY AND COMFORTABLE WILL CONTINUE TO MONITOR PTS.WILL GIVE ALL MEDS ORDERED AND CONT TO MONITER. Addendum: 01/09/19 at 2304 by ALICIA TREJO RN RN NOTES , PTS IS AWAKE AND RESPONSIVE NO SOB NO DISTRESS. PT IS ALERT AND O TIMES 1. OPENS EYES. NON RESPONSIVE TO SPEECH BUT RESPONSDS TO PAIN STIMULI, BUT WILL TALK FROM TIME TO TIME. CONFUSED. DUE MEDS GIVEN ORDERED BP OF 175/83 CLONIDINE 0.1 TTS PATCH ON AND IN TACT., CALL LIGHT WITHIN REACH KEPT PTS WILL BE KEPT CLEAN DRY AND COMFORTABLE WILL CONTINUE TO MONITOR PTS.WILL GIVE ALL MEDS ORDERED AND CONT TO MONITER.
[2019-01-09] MEDS: ATORVASTATIN 40 MG TABLET PO SCH (22:00)
--- NOTE | 2019-01-09 22:00 | NUR ---
PT BS IS 115, AGGITATED AND NONCOMPLIANT REFUSING ALL MEDICATION. PULLED OUT HIS IV LINE TWICE. PT NEEDS TO BE IN SOFT RESTRAINTS.
--- NOTE | 2019-01-09 22:51 | NUR ---
DAUGHTER OF DAYRL CALLED BACK TO [facility] FOR HIS HEMODYALISIS THAT IS TO TAKE PLACE IN THE MORNING. LINDSEY CHARGE NURSE WITNESSED AND I SIGNED WELL. CONSENT PLACED IN THE CHART.
[2019-01-10] VITALS: BP 197/87
--- NOTE | 2019-01-10 00:28 | NUR ---
PT REFUSED MIDNIGHT MEDICATION NITROCYCERIN OINTMENT.
[2019-01-10 04:00] VITALS: BP 197/97
--- NOTE | 2019-01-10 05:00 | NUR ---
PT REFUSED AM LAB DRAWS.
[2019-01-10] MEDS: NITROGLYCERIN 30 GM TUBE TP SCH ×4 (05:05→18:00)
[2019-01-10] MEDS: hydrALAZINE HCL IV 20 MG VIAL IV PRN (05:08)
--- NOTE | 2019-01-10 07:00 | NUR ---
MS RN OPENING NOTES RECEIVED PT LYING ON BED WITH B/L SOFT WRIST RESTRAINTS.PT IS ALERT/ORIENTED X1 WITH AGGRESSIVE BEHAVIOR.ON ROOM AIR,TOLERATING WELL.NO SOB AND ACUTE DISTRESS NOTED.IV LINE IS ON RIGHT HAND G22,SL AND LEFT UPPER ARM FISTULA,SITE IS CLEAN,DRY AND INTACT.NO INFILTRATION NOTED.BED IS IN LOW POSITION AND LOCKED,CALL LIGHT IS WITHIN REACH.WILL CONTINUE TO MONITOR THE PT CLOSELY.
--- NOTE | 2019-01-10 07:11 | NUR ---
RN CLOSING NOTES PTS IS AWAKE AND RESPONSIVE, AGRESSIVE, CONFUSED AND NON COMPLIANT. NO SOB NO DISTRESS. PT IS ALERT AND O TIMES 1. OPENS EYES.LAST BP WAS OF 175/83 AT 0630 CLONIDINE 0.1 TTS PATCH ON AND IN TACT., WELL NITRO ON CHEST. CALL LIGHT WITHIN REACH KEPT PTS WILL BE KEPT CLEAN DRY AND COMFORTABLE WILL ENDORSE TO AM SHIFT TO CARRY OUT PLAN OF CARE.
[2019-01-10] MEDS: BLOOD SUGAR DIAGNOSTIC 1 EACH STRIP VI SCH ×4 (07:30→22:10)
--- NOTE | 2019-01-10 07:45 | NUR ---
MS RN NOTES SEEN THE PT AND NNO NOTED.
[2019-01-10 08:00] VITALS: BP 172/88
[2019-01-10 08:32] LABS: BASOPHILS # (AUTO) 0.1 /CMM (0.0-0.2); EOSINOPHILS % (AUTO) 4.6 % (0.0-6.0); HEMATOCRIT 26 % (39-51); HEMOGLOBIN 8.7 g/dL (13.5-17.5); LYMPHOCYTES # (AUTO) 1.2 /CMM (0.8-4.8); LYMPHOCYTES % (AUTO) 23.7 % (20.0-44.0); MEAN CORPUSCULAR HGB CONC 33 g/dl (31.0-36.0); MEAN CORPUSCULAR VOLUME 93 fL (80-96); MONOCYTES # (AUTO) 0.7 /CMM (0.1-1.30); MONOCYTES % (AUTO) 13.6 % (2.0-12.0); NEUTROPHILS # (AUTO) 2.9 /CMM (1.8-8.9); NEUTROPHILS % (AUTO) 57.1 % (43.0-81.0); PLATELET COUNT (AUTO) 139 /CMM (150-450); RED BLOOD CELL COUNT(AUTO) 2.85 MIL/uL (4.5-6.0); WHITE BLOOD COUNT (AUTO) 5.1 K/uL (4.3-11.0)
[2019-01-10 08:42] LABS: CALCIUM, SERUM 9.5 mg/dL (8.5-10.1); MAGNESIUM 2.2 mg/dL (1.8-2.4); PHOSPHORUS 4.9 mg/dL (2.5-4.9); POTASSIUM 4.4 mmol/L (3.5-5.1)
[2019-01-10] MEDS: BENAZEPRIL HCL 20 MG TABLET PO SCH ×2 (08:45→18:55)
[2019-01-10] MEDS: DOCUSATE SODIUM 100 MG CAPSULE PO SCH ×2 (08:45→18:54)
[2019-01-10] MEDS: VIT B CMPLX 3/FA/VIT C/BIOTIN 1 TAB TABLET PO SCH (08:45)
[2019-01-10] MEDS: ASPIRIN 325 MG TABLET PO SCH (08:45)
[2019-01-10] MEDS: FOLIC ACID 1 MG TABLET PO SCH (08:45)
[2019-01-10] MEDS: PANTOPRAZOLE 40 MG TABLET.DR PO SCH (08:45)
[2019-01-10] MEDS: FERROUS SULFATE (325 MG) 325 MG/TAB TABLET PO SCH ×3 (08:45→18:54)
[2019-01-10] MEDS: SEVELAMER CARBONATE 800 MG TABLET PO SCH ×3 (08:46→18:55)
[2019-01-10] MEDS: ASCORBIC ACID 500 MG TABLET PO SCH (08:46)
[2019-01-10 08:48] LABS: CREATININE 11.7 mg/dL (0.6-1.3)
--- NOTE | 2019-01-10 11:45 | NUR ---
MS RN NOTES EMIL HAY SEEN THE PT AND MADE AWARE ABOUT THE HIGH BP,ORDERED TO GIVE IV HYDRALAZINE IF SBP>160MMHG ONLY AFTER TODAY'S DIALYSIS.NEW ORDERS NOTED AND CARRIED OUT.
[2019-01-10] MEDS: INSULIN REGULAR, HUMAN 100 UNIT/ML 3 ML VIAL SQ PRN ×2 (12:22→17:07)
--- NOTE | 2019-01-10 13:23 | NUR ---
MS RN NOTES LINUX UNIX SYSTEM ADMINISTRATOR SATNAM ORDERED PSYCHIATRIC CONSULTATION FOR PHYSICAL AND VERBAL AGGRESSIVE BEHAVIOR.NEW ORDERS NOTED AND CARRIED OUT.
--- NOTE | 2019-01-10 15:00 | NUR ---
MS RN NOTES CONTACT ISOLATION STARTS FOR MRSA NARES.
[2019-01-10] MEDS ORDERED: OLANZAPINE 10 MG VIAL IM PRN (15:30)
[2019-01-10 16:00] VITALS: BP 191/93
--- NOTE | 2019-01-10 16:17 | NUR ---
MS RN NOTES HEMODIALYSIS HAS STARTED.
--- NOTE | 2019-01-10 18:56 | NUR ---
MS RN NOTES PT IS STILL HAVING HEMODIALYSIS,HOLD ALL THE PM MEDS IN THE SHIFT AND THE BP IS 112/33,HOLDING ALL BP MEDS.
--- NOTE | 2019-01-10 18:57 | NUR ---
MS RN CLOSING NOTES PT IS LYING ON BED DOING HEMODIALYSIS.ALL DUE MEDS ARE GIVEN.ON ROOM AIR,TOLERATING WELL.NO SOB AND ACUTE DISTRESS NOTED.IV LINE IS ON PLACE.NO SIGNIFICANT CHANGES NOTED IN THE SHIFT.WILL ENDORSE TO CLOTH PRESSER RN FOR TAINA.
--- NOTE | 2019-01-10 19:50 | NUR ---
RN OPENING NOTES RECEIVED PATIENT AWAKE, RESTING IN BED COMFORTABLY. PATIENT IS AWAKE AND RESPONSIVE. A/O X 1. PATIENT WITH B/L SOFT WRIST RESTRAINTS. ON ROOM AIR, SATURATING WELL. NO SIGNS OF RESPIRATORY DISTRESS, RESPIRATIONS EVEN AND UNLABORED. NO SIGNS OF SHORTNESS OF BREATH. IV SITE ON RIGHT HAND, IS SL, INTACT AND PATENT. LEFT UPPER ARM FISTULA, SITE IS CLEAN, DRY AND INTACT. NO INFILTRATION NOTED. SAFETY PRECAUTIONS IMPLEMENTED; CALL LIGHT WITHIN REACH, BED LOWEST POSITION, BED LOCKED, SIDE RAILS UP X2. WILL CONTINUE TO MONITOR PATIENT.
[2019-01-10 20:00] VITALS: BP 144/87
[2019-01-10] MEDS: MUPIROCIN OINT 2% 22 GM TUBE SCH (21:49)
[2019-01-10] MEDS: ATORVASTATIN 40 MG TABLET PO SCH (22:10)
[2019-01-10] MEDS: *INSULIN REGULAR(HUMULIN R)HUM 100 UNIT/ML VIAL SQ PRN (22:12)
[2019-01-11] VITALS: BP 160/65
[2019-01-11] MEDS: NITROGLYCERIN 30 GM TUBE TP SCH ×4 (01:20→17:15)
[2019-01-11 04:00] VITALS: BP 183/78
[2019-01-11] MEDS: hydrALAZINE HCL IV 20 MG VIAL IV PRN ×2 (04:34→20:32)
--- NOTE | 2019-01-11 04:35 | NUR ---
RN NOTES BP WAS 183/78, PULSE 73. HYDRALAZINE ADMINISTERED, 0.5 ML. WILL MONITOR BLOOD PRESSURE.
--- NOTE | 2019-01-11 05:13 | NUR ---
RN NOTES CURRENT BP 156/73, PULSE 73.
--- NOTE | 2019-01-11 06:58 | NUR ---
RN CLOSING NOTES NO CHANGES NOTED THROUGHOUT THE SHIFT. PATIENT CURRENTLY ASLEEP, EASILY AROUSABLE TO VOICE AND TOUCH. NO RESPIRATORY DISTRESS NOTED. NO SEIZURES NOTED. NO FACIAL GRIMACING, NO SIGNS OF PAIN OR DISCOMFORT NOTED. PATIENT STABLE. ON 2LPM OXYGEN VIA NASAL CANNULA, NO SOB NOTED, SATURATING WELL. PATIENT KEPT CLEAN, DRY, AND COMFORTABLE. SAFETY PRECAUTIONS IMPLEMENTED; CALL LIGHT WITHIN REACH, BED LOWEST POSITION, BED LOCKED, SIDE RAILS UP X2. WILL ENDORSE TO DAY NURSE FOR CONTINUITY OF CARE.
--- NOTE | 2019-01-11 06:59 | NUR ---
RN CLOSING NOTES DISREGARD DOCUMENT FOR 0658. PATIENT IS CURRENTLY AWAKE AND RESPONSIVE. PATIENT IS CONFUSED. PATIENT IS A/O X 1. NO SIGNS OF RESPIRATORY DISTRESS, RESPIRATIONS EVEN AND UNLABORED. ON RA, TOLERATING WELL. NO SHORTNESS OF BREATH NOTED. IV SITE ON RIGHT HAND, INTACT AND PATENT. LEFT UPPER ARM FISTULA IS CLEAN, DRY, AND INTACT. NO INFILTRATION. PATIENT STABLE AT THIS TIME. SAFETY PRECAUTIONS IMPLEMENTED; CALL LIGHT WITHIN REACH, BED LOWEST POSITION, BED LOCKED, SIDE RAILS UP X2. PATIENT KEPT CLEAN DRY AND COMFORTABLE. PATIENT TURNED EVERY 2 HOURS. WILL ENDORSE TO DAY NURSE FOR CONTINUITY OF CARE.
--- NOTE | 2019-01-11 07:30 | NUR ---
MS/RN OPENING NOTES RECEIVED PATIENT IN BED SLEEPING COMFORTABLY. EASILY AROUSABLE. PATIENT ABLE TO RESPOND TO VERBAL AND TACTILE STIMULI. PATIENT IS ALERT AND ORIENTED X1. NO PAIN OR ACUTE DISTRESS AT THIS TIME. RESPIRATION EVEN AND UNLABORED. SKIN IS DRY WARM TO TOUCH. PATIENT NOTED WITH B/L SOFT WRIST RESTRAINTS. ON ROOM AIR, SATURATING WELL. IV SITE ON RIGHT HAND. INTACT AND PATENT. FLUSHING WELL. LEFT UPPER ARM FISTULA, SITE IS CLEAN, DRY AND INTACT. NO INFILTRATION NOTED. ALL NEEDS ANTICIPATED. CALL LIGHT WITHIN REACHED. SAFETY MAINTAINED. BED LOCKED AND IN LOWEST POSITION. WILL CONTINUE TO MONITOR CLOSELY.
[2019-01-11] MEDS: PANTOPRAZOLE 40 MG TABLET.DR PO SCH (07:54)
[2019-01-11] MEDS: BLOOD SUGAR DIAGNOSTIC 1 EACH STRIP VI SCH ×4 (07:54→21:39)
[2019-01-11 08:00] VITALS: BP 174/94
[2019-01-11] MEDS: MUPIROCIN OINT 2% 22 GM TUBE SCH ×2 (09:30→21:10)
--- NOTE | 2019-01-11 09:30 | NUR ---
MS/RN NOTES PATIENT SEEN AND EVALUATED BY EMIL URENA INFORMED HIM ABOUT THE ELEVATED BP, ACCORDING TO HIM MONITOR FOR NOW. PATIENT CONTINUES TO REMAIN IN STABLE CONDITION. WILL CONTINUE TO MONITOR.
[2019-01-11] MEDS: BENAZEPRIL HCL 20 MG TABLET PO SCH ×2 (09:31→16:45)
[2019-01-11] MEDS: VIT B CMPLX 3/FA/VIT C/BIOTIN 1 TAB TABLET PO SCH (09:31)
[2019-01-11] MEDS: DOCUSATE SODIUM 100 MG CAPSULE PO SCH ×2 (09:31→16:45)
[2019-01-11] MEDS: SEVELAMER CARBONATE 800 MG TABLET PO SCH ×3 (09:31→16:45)
[2019-01-11] MEDS: ASPIRIN 325 MG TABLET PO SCH (09:31)
[2019-01-11] MEDS: FERROUS SULFATE (325 MG) 325 MG/TAB TABLET PO SCH ×3 (09:31→16:45)
[2019-01-11] MEDS: FOLIC ACID 1 MG TABLET PO SCH (09:31)
[2019-01-11] MEDS: ASCORBIC ACID 500 MG TABLET PO SCH (09:37)
[2019-01-11 10:12] LABS: BASOPHILS # (AUTO) 0.1 /CMM (0.0-0.2); BASOPHILS % (AUTO) 1.5 % (0.0-2.0); EOSINOPHILS % (AUTO) 4.6 % (0.0-6.0); HEMATOCRIT 28 % (39-51); HEMOGLOBIN 9.3 g/dL (13.5-17.5); LYMPHOCYTES # (AUTO) 1.2 /CMM (0.8-4.8); LYMPHOCYTES % (AUTO) 26.6 % (20.0-44.0); MEAN CORPUSCULAR HGB CONC 33 g/dl (31.0-36.0); MEAN CORPUSCULAR VOLUME 93 fL (80-96); MONOCYTES # (AUTO) 0.6 /CMM (0.1-1.30); MONOCYTES % (AUTO) 13.8 % (2.0-12.0); NEUTROPHILS # (AUTO) 2.4 /CMM (1.8-8.9); NEUTROPHILS % (AUTO) 53.5 % (43.0-81.0); PLATELET COUNT (AUTO) 152 /CMM (150-450); WHITE BLOOD COUNT (AUTO) 4.4 K/uL (4.3-11.0)
[2019-01-11 10:29] LABS: CALCIUM, SERUM 9.7 mg/dL (8.5-10.1); POTASSIUM 4.2 mmol/L (3.5-5.1)
[2019-01-11 10:31] LABS: CREATININE 8.8 mg/dL (0.6-1.3)
[2019-01-11 16:00] VITALS: BP 153/64
--- NOTE | 2019-01-11 19:00 | NUR ---
MS/RN CLOSING NOTES PATIENT CONTINUES TO REMAIN IN STABLE CONDITION. PROVIDED COMFORT AND SAFETY THROUGHOUT THE SHIFT. NO PAIN OR ACUTE DISTRESS AT THIS TIME. RESPIRATION EVEN AND UNLABORED. ON ROOM AIR, SATURATING WELL. IV SITE ON RIGHT HAND. INTACT AND PATENT. FLUSHING WELL. LEFT UPPER ARM FISTULA, SITE IS CLEAN, DRY AND INTACT. NO INFILTRATION NOTED. ALL NEEDS ANTICIPATED. KEPT CLEAN AND DRY. CALL LIGHT WITHIN REACHED. SAFETY MAINTAINED. BED LOCKED AND IN LOWEST POSITION. ENDORSED TO PM NURSE FOR TAINA.
--- NOTE | 2019-01-11 19:30 | NUR ---
MS RN NOTE REPORT RECEIVED BEDSIDE. PATIENT IN BED SLEEPING A/PO X1. PATIENT DENIES CHEST PAIN AT THIS TIME. PATIENT HAS NO S/S OF SOB OF BREATH/ WOB NO S/S OF ACUTE RESPIRATORY DISTRESS. PATIENT DENIES PAIN OR DISCOMFORT AT THIS TIME. PATIENT R HAND IV PATENT AND INTACT NO S/S OF INFECTION/INFILTRATION. SAFETY PRECAUTIONS IN PLACE. RN WILL CONTINUE TO MONITOR FOR SAFETY. BED IN LOWEST LOCKED POSITION. CALL LIGHT WITHIN REACH.
[2019-01-11 20:00] VITALS: BP 185/93
--- NOTE | 2019-01-11 20:25 | NUR ---
MS RN NOTE PATIENT NOTED TO BE HYPERTENSIVE. PATIENT ASSESSED PATIENT ASYMPTOMATIC. GAVE IV HYDRALAZINE PER MD PRN ORDER WILL REEVALUATE IN 45 MIN.
--- NOTE | 2019-01-11 21:15 | NUR ---
MS RN NOTE RECHECKED PATIENTS BP CURRENTLY 163/75. REASSESSED PATIENT IV, IV NO LONGER PATENT. IV REMOVED. PATIENT REFUSED ANOTHER IV. MONEY ROOM TELLER MARCOS AWARE. PATIENT EDUCATED ON IMPORTANCE OF HAVING IV ACCESS. PATIENT STILL REFUSES.
[2019-01-11] MEDS: ATORVASTATIN 40 MG TABLET PO SCH (21:39)
[2019-01-12] MEDS: NITROGLYCERIN 30 GM TUBE TP SCH ×3 (00:58→12:18)
--- NOTE | 2019-01-12 01:04 | NUR ---
MS RN NOTE PATIENT BP ELEVATED PRIOR TO NITRO ADMINISTRATION. SSP 180. ATTEMPTED TO INSERT IV PATIENT FOR FUTURE IV HYDRALAZINE ADMINISTRATION, PATIENT AGITATED AND REFUSED RN. FLIGHT TEST SHOP MECHANIC MARCOS ATTEMPTED TO TRY AND INSERT AN IV PATIENT REFUSED FLIGHT TEST SHOP MECHANIC. ICU CHARGE NURSE ED NOTIFIED. RN WILL CONTINUE TO MONITOR BP. PATIENT ASYMPTOMATIC OF HYPERTENSION.
[2019-01-12 04:00] VITALS: BP 170/64
--- NOTE | 2019-01-12 04:00 | NUR ---
MS RN NOTE PATIENT BP STILL ELEVATED, BUT GOING DOWN, SBP 170. PATIENT STILL REFUSES IV PLACEMENT WITH AGGRESSIVE BEHAVIOR. PATIENT ASYMPTOMATIC, RN WILL CONTINUE TO MONITOR BP. PATIENT HAS ONE MORE DOSE OF NITRO TO BE GIVEN AT 5 AM, AND HD SCHEDULED TODAY WITH HIS PRESCRIBED RX DRUGS.
--- NOTE | 2019-01-12 05:52 | NUR ---
MS RN NOTE PATIENT REFUSED AM LABS. WILL ATTEMPT TO TAKE LABS LATER IN THE DAY. OFFERED PATIENT AGAIN TO PLACE IV, PATIENT REFUSED. CHARGE OFFERED AGAIN PATIENT REFUSED. OFFERED PATIENT PO MED FOR HTN, PATIENT REFUSED. CHARGE AND MD AWARE.
--- NOTE | 2019-01-12 06:56 | NUR ---
MS RN NOTE BP RECHECKED SBP 170. PATIENT STILL ASYMPTOMATIC. DENIES CHEST PAIN, SOB, HEADACHE, PAIN OR DISCOMFIT. PATIENT REMAINED AGGRESSIVE TO RN CARE ALL NIGHT WITH THREATENING MANNERISMS AND FACIAL EXPRESSIONS. UNABLE TO ESTABLISH IV ACCES THROUGH THE SHIFT, WILL ENDORSE TO AM NURSE TO START. PATIENT REMAINS OTHERWISE STABLE A/O X 1 AT BASELINE ENCEPHALOPATHIC. SAFETY PRECAUTIONS IN PLACE. CARE GIVEN ORDERED. RN WILL CONTINUE TO MONITOR AND ENDORSE POC TO AM FOR TAINA.
--- NOTE | 2019-01-12 07:45 | NUR ---
MS RN OPENING NOTE RECEIVED REPORT FROM [facility] SH[facility]. PT SLEEPING BED, ON ROOM AIR, TOLERATING WELL, RESPIRATIONS EASY AND UNLABORED, NO SIGNS OF RESPIRATORY DISTRESS NOTED. PT SCHEDULED FOR HD TODAY.
[2019-01-12 08:00] VITALS: BP_SYST 166; BP_SYST 197; BP_DIAS 84; BP_DIAS 97
[2019-01-12] MEDS: BLOOD SUGAR DIAGNOSTIC 1 EACH STRIP VI SCH ×3 (08:13→17:23)
[2019-01-12] MEDS: FERROUS SULFATE (325 MG) 325 MG/TAB TABLET PO SCH ×3 (08:13→17:29)
[2019-01-12] MEDS: ASPIRIN 325 MG TABLET PO SCH (08:13)
[2019-01-12] MEDS: FOLIC ACID 1 MG TABLET PO SCH (08:13)
[2019-01-12] MEDS: PANTOPRAZOLE 40 MG TABLET.DR PO SCH (08:13)
[2019-01-12] MEDS: DOCUSATE SODIUM 100 MG CAPSULE PO SCH ×2 (08:13→17:29)
[2019-01-12] MEDS: SEVELAMER CARBONATE 800 MG TABLET PO SCH ×3 (08:56→17:29)
[2019-01-12] MEDS: BENAZEPRIL HCL 20 MG TABLET PO SCH ×2 (08:57→17:29)
[2019-01-12] MEDS: VIT B CMPLX 3/FA/VIT C/BIOTIN 1 TAB TABLET PO SCH (08:57)
[2019-01-12] MEDS: ASCORBIC ACID 500 MG TABLET PO SCH (08:57)
[2019-01-12] MEDS: hydrALAZINE HCL IV 20 MG VIAL IV PRN ×2 (09:48→17:29)
[2019-01-12] MEDS: MUPIROCIN OINT 2% 22 GM TUBE SCH (09:52)
[2019-01-12 12:00] VITALS: BP_SYST 192; BP_SYST 197; BP_DIAS 97; BP_DIAS 99
[2019-01-12] MEDS: hydrALAZINE HCL 25 MG TABLET PO SCH ×2 (12:00→12:36)
[2019-01-12] MEDS: INSULIN REGULAR, HUMAN 100 UNIT/ML 3 ML VIAL SQ PRN (12:17)
[2019-01-12] MEDS ORDERED: ASPI-1169 PO (12:27)
[2019-01-12] MEDS ORDERED: BENA20TA9 PO (12:27)
[2019-01-12] MEDS ORDERED: MUPI22OI7 (12:27)
[2019-01-12] MEDS ORDERED: HYDR-4076 PO (12:27)
[2019-01-12 12:42] VITALS: BP 160/82
[2019-01-12 14:02] LABS: BASOPHILS # (AUTO) 0.1 /CMM (0.0-0.2); BASOPHILS % (AUTO) 1.3 % (0.0-2.0); EOSINOPHILS % (AUTO) 4.1 % (0.0-6.0); HEMATOCRIT 26 % (39-51); HEMOGLOBIN 8.6 g/dL (13.5-17.5); LYMPHOCYTES % (AUTO) 19.8 % (20.0-44.0); MEAN CORPUSCULAR HGB CONC 34 g/dl (31.0-36.0); MEAN CORPUSCULAR VOLUME 92 fL (80-96); MONOCYTES # (AUTO) 0.5 /CMM (0.1-1.30); MONOCYTES % (AUTO) 9.1 % (2.0-12.0); NEUTROPHILS # (AUTO) 3.3 /CMM (1.8-8.9); NEUTROPHILS % (AUTO) 65.7 % (43.0-81.0); PLATELET COUNT (AUTO) 145 /CMM (150-450); RED BLOOD CELL COUNT(AUTO) 2.77 MIL/uL (4.5-6.0)
[2019-01-12 14:17] LABS: CALCIUM, SERUM 9.3 mg/dL (8.5-10.1); POTASSIUM 4.7 mmol/L (3.5-5.1)
[2019-01-12 14:22] LABS: CREATININE 10.1 mg/dL (0.6-1.3)
[2019-01-12 16:00] VITALS: BP 183/93
[2019-01-12 17:29] VITALS: BP 158/70
--- NOTE | 2019-01-12 17:49 | NUR ---
GAVE REPORT TO [facility], DISCHARGE PAPERS COMPLETED. BLOOD PRESSURE IMPROVED 150/80 MMHG. DIALYSIS NURSE COMPLETED 2 HOURS OF DIALYSIS, REMOVED 1.5L. PATIENT IN STABLE CONDITION. [facility] TRANSFERRING PT TO [facility].
--- NOTE | 2019-01-12 18:33 | NUR ---
PT LEFT UNIT VIA [facility] WITH [facility].
== END 2019-01-12 21:34 | DRG 199 ==
LOC: TELE1 22:58 → MEDSG1 01-09 10:50 → TELE1 01-12 07:57
PROVIDERS: ADMIT Student in an Organized Health Care Education/Training Program; ATTEND Nurse Practitioner Acute Care
PROC: 5A1D70Z Performance of Urinary Filtration, Intermittent, Less than 6 Hours Per Day (ICD-10-PCS; principal; 2019-01-08)
PROC: 5A1D70Z Performance of Urinary Filtration, Intermittent, Less than 6 Hours Per Day (ICD-10-PCS; 2019-01-10)
PROC: 5A1D70Z Performance of Urinary Filtration, Intermittent, Less than 6 Hours Per Day (ICD-10-PCS; 2019-01-12)
DX: I16.0 Hypertensive urgency (principal); I21.A1 Myocardial infarction type 2; G93.41 Metabolic encephalopathy; E11.22 Type 2 diabetes mellitus with diabetic chronic kidney disease; E11.51 Type 2 diabetes mellitus with diabetic peripheral angiopathy without gangrene; D69.6 Thrombocytopenia, unspecified; N18.6 End stage renal disease; F20.9 Schizophrenia, unspecified; F29 Unspecified psychosis not due to a substance or known physiological condition; R41.0 Disorientation, unspecified; I12.0 Hypertensive chronic kidney disease with stage 5 chronic kidney disease or end stage renal disease; D63.1 Anemia in chronic kidney disease; Z99.2 Dependence on renal dialysis; E55.9 Vitamin D deficiency, unspecified; E78.5 Hyperlipidemia, unspecified; F03.90 Unspecified dementia, unspecified severity, without behavioral disturbance, psychotic disturbance, mood disturbance, and anxiety; Z88.0 Allergy status to penicillin; F41.9 Anxiety disorder, unspecified; F32.9 Major depressive disorder, single episode, unspecified
CPT/HCPCS: 36415; 36600; 71045-TC; 80048-TC; 80053-TC; 80061-TC; 82962-TC; 83735-TC; 84100-TC; 84443-TC; 84484-TC; 85025-TC; 86706; 87081-TC; 87340; 90935-TC; 92526; 92611-TC; 93307-TC; A6253; A6403; G0378; J0360; J1815; J2405; J3490